=== PATIENT | male | born 1970 | race Caucasian/White ===

== ENCOUNTER 2022-08-21 16:12 | Emergency (ER) | payer MEDICAID ==
[~2022-08-21] VITALS: Ht 162.6 cm; Wt 64.4 kg
--- NOTE | 2022-08-21 16:32 | NUR ---
RANDY FROM WORK FOR WITNESSED SEIZURE LIKE ACTIVITY. NO HEAD TRAUMA. PT WAS POST ICTAL ON ARRIVAL. PT TRANSFERRED TO AND CONNECTED TO MONITOR. VITAL SIGNS STABLE. SEIZURE PRECAUTIONS IN PLACE. AWAITING MD ORDERS,.
--- NOTE | 2022-08-21 16:35 | NUR ---
IV LINE IS ESTABLISHED, BLOOD SPECIMEN COLLECTED AND SENT TO THE LAB. THE LINE IS SALINE LOCKED.
[2022-08-21 16:42] LABS: BASOPHILS % (AUTO) 0.6 % (0.0-2.0); EOSINOPHILS % (AUTO) 0.1 % (0.0-6.0); HEMATOCRIT 41 % (39-51); HEMOGLOBIN 13.2 g/dL (13.5-17.5); LYMPHOCYTES # (AUTO) 0.7 K/uL (0.8-4.8); LYMPHOCYTES % (AUTO) 11.5 % (20.0-44.0); MEAN CORPUSCULAR HGB CONC 32 g/dl (31.0-36.0); MEAN CORPUSCULAR VOLUME 99 fL (80-96); MONOCYTES # (AUTO) 0.4 K/uL (0.1-1.30); MONOCYTES % (AUTO) 6.8 % (2.0-12.0); NEUTROPHILS # (AUTO) 5.1 K/uL (1.8-8.9); PLATELET COUNT (AUTO) 70 K/uL (150-450); RED BLOOD CELL COUNT(AUTO) 4.13 MIL/uL (4.5-6.0); WHITE BLOOD COUNT (AUTO) 6.2 K/uL (4.3-11.0)
[2022-08-21 16:58] LABS: ALBUMIN 4.4 g/dL (3.4-5.0); BILIRUBIN,DIRECT 1.1 mg/dL (0.0-0.2); BILIRUBIN,TOTAL 2.3 mg/dL (0.2-1.0); CALCIUM, SERUM 9.4 mg/dL (8.5-10.1); CREATININE 1.1 mg/dL (0.6-1.3); POTASSIUM 3.5 mmol/L (3.5-5.1); TOTAL PROTEIN, SERUM 8.6 g/dL (6.4-8.2)
[2022-08-21] MEDS ORDERED: LORAZEPAM INJ 2 MG/ML VIAL IV ONE (18:30)
[2022-08-21] MEDS ORDERED: LORAZEPAM INJ 2 MG/ML VIAL ONE (18:33)
[2022-08-21 18:34] LABS: LYMPHOCYTES % (MANUAL) 13 % (16-48); MONOCYTES % (MANUAL) 4 % (0-11.0); NEUTROPHILS % (MANUAL) 83 (42-76)
[2022-08-21] MEDS ORDERED: CHLO25CA22 PO (19:30)
--- NOTE | 2022-08-21 20:00 | NUR ---
IV CHRISTY REMOVED
[2022-08-21 20:01] VITALS: BP 149/100
--- NOTE | 2022-08-21 20:01 | NUR ---
Patient discharged to home in stable condition. Written and verbal after care instructions given. Patient verbalizes understanding of instruction.
== END 2022-08-21 20:02 | disposition home or self-care (01) ==
LOC: ER 16:14
DX: F10.239 Alcohol dependence with withdrawal, unspecified (principal); Z79.899 Other long term (current) drug therapy; Z60.2 Problems related to living alone; Y90.0 Blood alcohol level of less than 20 mg/100 ml
CPT/HCPCS: 99285; 96374; 93005; 71045; 70450; 85025; 80048; 80076; 85007; 36415; 85730; 82962; 80320; 80307; J2060; G0480